=== PATIENT | male | born 1955 | race Caucasian/White ===

== ENCOUNTER 2021-01-25 18:37 | Inpatient (IN) | payer OTHER ==
[~2021-01-25] VITALS: Ht 170.2 cm; Wt 86.0 kg
--- NOTE | 2021-01-25 18:39 | NUR ---
pg code neuro @ 1835 pg neuro @ 0035
--- NOTE | 2021-01-25 19:06 | NUR ---
Patient presents to ER c/o stroke like symptoms including difficulty using right hand since approx 1400 and expressive aphasia since approx 1700. Patient has a hx of TIAs x5. For EMS, patient was having difficulty following commands. Denies weakness. +strength in all extremities. Currently, patient has decreased sensation in right arm and no sensation in right leg. Also having diff finding the correct words. AAOx3 to person, place, and event. Patient is in NAD. Respirations even and unlabored.
[2021-01-25] MEDS ORDERED: OMNIPAQUE 350 MG/ML, 100ML BOTTLE ONE (19:15)
--- NOTE | 2021-01-25 19:18 | NUR ---
DR ESCALANTE PAGE @ 179 PEG OF STAFF
[2021-01-25 19:23] LABS: BASOPHILS % (AUTO) 1 % (0-1); EOSINOPHILS % (AUTO) 0 % (1-7); LYMPHOCYTES % (AUTO) 25 % (22-44); MEAN CORPUSCULAR HEMOGLOBIN 35.2 pg (27.5-34.5); MEAN CORPUSCULAR HGB CONC 33.8 g/dL (33.2-36.2); MEAN PLATELET VOLUME 7.2 fL (7.4-10.4); MONOCYTES % (AUTO) 22 % (2-9); NEUTROPHILS % (AUTO) 53 % (42-75); PLATELET COUNT 226 x10^3/uL (130-400); RED BLOOD COUNT 4.01 x10^6/uL (4.38-5.82); RED CELL DISTRIBUTION WIDTH 13.7 % (9.4-14.8)
[2021-01-25] MEDS ORDERED: ASPIRIN 325 MG TABLET PO ONE (19:28)
[2021-01-25 19:29] LABS: INTERNATIONAL NORMALIZED RATIO 1.02 (0.93-1.1); PROTHROMBIN TIME 10.9 Seconds (9.6-11.5)
[2021-01-25] MEDS ORDERED: ENALAPRILAT 1.25 MG/ML, 2ML IV ONE (19:30)
[2021-01-25] MEDS ORDERED: ASPIRIN 325 MG TABLET ONE (19:34)
[2021-01-25] MEDS ORDERED: ENALAPRILAT 1.25 MG/ML, 1ML ONE (19:34)
[2021-01-25] MEDS ORDERED: ONDANSETRON 2MG/ML, 2ML IVPush PRN (21:30)
[2021-01-25] MEDS ORDERED: ACETAMINOPHEN 650 MG/20.3 ML UDC PO PRN (21:30)
[2021-01-25] MEDS ORDERED: LABETALOL 5MG/ML, 20ML IV PRN (22:00)
--- NOTE | 2021-01-25 22:38 | NUR ---
Report given to ERIKA Villegas. Patient to be transferred to room 488-1.
[2021-01-25 23:12] VITALS: BP 140/91
[2021-01-26] VITALS (12 sets, daily range): BP systolic 140–175; BP diastolic 79–115
[2021-01-26] MEDS: ATORVASTATIN 80 MG TABLET PO SCH ×2 (02:35→21:41)
[2021-01-26 05:32] LABS: CHOL/HDL RATIO 6.1; LDL/HDL RATIO 4.5 (0.5-3.0)
[2021-01-26] MEDS: ASPIRIN 81 MG TABLET CHEW PO/NG SCH (08:04)
[2021-01-26] MEDS ORDERED: ACETAMINOPHEN 650 MG/20.3 ML UDC PO PRN (09:00)
[2021-01-26] MEDS: HEPARIN 5,000 UNITS/ML, 1ML SQ SCH ×2 (09:59→17:26)
[2021-01-26 10:58] LABS: ANION GAP 4 mmol/L (5-15); CALCIUM 8.6 mg/dL (8.5-10.1); CHLORIDE 103 mmol/L (98-107); CREATININE 0.84 mg/dL (0.7-1.3)
[2021-01-27] VITALS (8 sets, daily range): BP systolic 152–177; BP diastolic 70–120
[2021-01-27] MEDS: HEPARIN 5,000 UNITS/ML, 1ML SQ SCH ×2 (01:23→09:53)
[2021-01-27 08:14] LABS: CALCIUM 8.7 mg/dL (8.5-10.1)
[2021-01-27 08:15] LABS: CREATININE 0.88 mg/dL (0.7-1.3)
[2021-01-27 08:29] LABS: ANION GAP 6 mmol/L (5-15); CHLORIDE 102 mmol/L (98-107)
[2021-01-27] MEDS: ASPIRIN 81 MG TABLET CHEW PO/NG SCH (09:54)
[2021-01-27] MEDS ORDERED: LIDOCAINE 2%, 20ML ONE (14:22)
[2021-01-27] MEDS ORDERED: LABETALOL 5MG/ML, 20ML IV PRN (15:00)
[2021-01-27] MEDS: CARVEDILOL 6.25 MG TABLET PO SCH (18:42)
[2021-01-27] MEDS ORDERED: LOSARTAN 25MG TABLET PO SCH (21:00)
[2021-01-27] MEDS: AMLODIPINE 5 MG TABLET PO SCH (21:52)
[2021-01-27] MEDS: LOSARTAN 50MG TABLET PO SCH (21:52)
[2021-01-28 05:00] LABS: INTERNATIONAL NORMALIZED RATIO 1.02 (0.93-1.1); PROTHROMBIN TIME 10.9 Seconds (9.6-11.5)
[2021-01-28 05:01] LABS: MEAN CORPUSCULAR HEMOGLOBIN 35.6 pg (27.5-34.5); MEAN CORPUSCULAR HGB CONC 34.4 g/dL (33.2-36.2); MEAN PLATELET VOLUME 7.4 fL (7.4-10.4); PLATELET COUNT 232 x10^3/uL (130-400); RED BLOOD COUNT 4.43 x10^6/uL (4.38-5.82); RED CELL DISTRIBUTION WIDTH 13.6 % (9.4-14.8)
[2021-01-28 05:02] LABS: ALANINE AMINOTRANSFERASE 46 U/L (12-78); ALBUMIN 3.2 g/dL (3.4-5.0); ANION GAP 8 mmol/L (5-15); CALCIUM 8.3 mg/dL (8.5-10.1); CHLORIDE 101 mmol/L (98-107); CREATININE 0.93 mg/dL (0.7-1.3)
[2021-01-28 05:04] LABS: ALKALINE PHOSPHATASE 47 U/L (45-117); BILIRUBIN,TOTAL 0.7 mg/dL (0.2-1.0)
[2021-01-28] MEDS: CARVEDILOL 6.25 MG TABLET PO SCH ×2 (06:20→18:01)
[2021-01-28 07:02] LABS: LYMPH#(MANUAL) 1.88 x10^3/uL (1-3.4); LYMPHS% (MANUAL) 20 % (22-44); METAMYELOCYTES# (MANUAL) 0.09 x10^3/uL (0-0); METAMYELOCYTES% (MANUAL) 1 % (0-1); MONOS#(MANUAL) 1.88 x10^3/uL (0.3-2.7); MONOS% (MANUAL) 20 % (2-9)
[2021-01-28 07:03] LABS: <RBC MORPHOLOGY> NORMAL; MYELOCYTES# (MANUAL) 0.19 x10^3/uL (0-0); MYELOCYTES% (MANUAL) 2 % (0-0); SEG#(MANUAL) 5.36 x10^3/uL (1.8-6.8); SEGS% (MANUAL) 57 % (42-75)
[2021-01-28 07:04] LABS: <PLATELET ESTIMATE> ADEQUATE; <PLT MORPHOLOGY> NORMAL PLT MORPH
[2021-01-28] MEDS: SODIUM CHLORIDE 1 GM TABLET PO SCH ×2 (08:51→20:20)
[2021-01-28 12:40] VITALS: BP 135/87
[2021-01-28 17:58] VITALS: BP 160/92
[2021-01-28 19:00] VITALS: BP 150/93
[2021-01-28] MEDS: LOSARTAN 50MG TABLET PO SCH (20:20)
[2021-01-28] MEDS: AMLODIPINE 5 MG TABLET PO SCH (20:20)
[2021-01-29 00:42] VITALS: BP 130/82
[2021-01-29] MEDS: CARVEDILOL 6.25 MG TABLET PO SCH (05:31)
[2021-01-29] MEDS ORDERED: AMLODIPINE 5 MG TABLET PO SCH (09:00)
[2021-01-29 09:32] VITALS: BP 128/83
[2021-01-29] MEDS: SODIUM CHLORIDE 1 GM TABLET PO SCH (10:08)
[2021-01-29] MEDS ORDERED: CARV6.2512 PO (12:46)
[2021-01-29] MEDS ORDERED: LOSA50TA2 PO (12:46)
[2021-01-29] MEDS ORDERED: AMLO-150 PO (12:46)
== END 2021-01-29 14:54 | disposition home health service (06) | DRG 41 ==
LOC: ED 19:45 → EDIP 20:03 → 4EST 23:09 → CCU 01-27 17:51 → 4EST 01-28 10:39
PROVIDERS: ADMIT Family Medicine; ATTEND Internal Medicine
PROC: 0JH632Z Insertion of Monitoring Device into Chest Subcutaneous Tissue and Fascia, Percutaneous Approach (ICD-10-PCS; principal; 2021-01-27)
DX: I63.9 Cerebral infarction, unspecified (principal); I50.32 Chronic diastolic (congestive) heart failure; Q21.1 Atrial septal defect; D75.89 Other specified diseases of blood and blood-forming organs; E66.9 Obesity, unspecified; E78.5 Hyperlipidemia, unspecified; E87.5 Hyperkalemia; F10.10 Alcohol abuse, uncomplicated; I48.0 Paroxysmal atrial fibrillation; I11.0 Hypertensive heart disease with heart failure; R29.704 NIHSS score 4; R47.01 Aphasia; Z96.642 Presence of left artificial hip joint; Z68.29 Body mass index [BMI] 29.0-29.9, adult; Z79.82 Long term (current) use of aspirin; Z82.3 Family history of stroke
CPT/HCPCS: 33285; 36415; 99291; J3490; 70450; 70496; 70498; 70551; 80047; 80048; 80053; 80061; 82607; 83735; 84100; 84443; 85025; 85610; 85730; 87081; 93005; 93306; C1764; G0378; J1644; Q9967; 92523-GN